=== PATIENT | male | born 1955 | race Caucasian/White ===

== ENCOUNTER 2016-10-28 12:17 | Outpatient (CLI) | payer BC ==
[~2016-10-28] VITALS: Ht 177.8 cm; Wt 106.6 kg
[~2016-10-28 12:17] MED LIST: ATOR1TAB21 PO
[2016-10-28] MEDS ORDERED: NS 1,000 ML IV ONE (13:00)
[2016-10-28] MEDS ORDERED: LIDOCAINE 2% INJ 100 MG/5 ML SDV (FOR ANES.) As Ordered ONE (13:39)
[2016-10-28] MEDS ORDERED: PROPOFOL 200 MG/20 ML VIAL As Ordered ONE (13:39)
--- NOTE | 2016-10-28 14:33 | ROOR ---
Patient Name: Khris Mtz Procedure Date: 10/28/2016 2:02 PM Date of : 1955 Age: 61 Room: [facility] Gender: Male Note Status: Finalized Procedure: Total Colonoscopy to Cecum + Biopsy Polypectomy Indications: Screening for colorectal malignant neoplasm, Last colonoscopy: 2006 Providers: Ty Enrique MD Referring MD: Katiana QUICK [facility] [place], [facility], Admin. Requesting Provider: Medicines: Monitored Anesthesia Care Complications: No immediate complications. Procedure: Pre-Anesthesia Assessment: - The heart rate, respiratory rate, oxygen saturations, blood pressure, adequacy of pulmonary ventilation, and response to care were monitored throughout the procedure. The Colonoscope was introduced through the anus and advanced to the cecum, identified by appendiceal orifice and ileocecal valve. The colonoscopy was performed without difficulty. The patient tolerated the procedure well. The quality of the bowel preparation was excellent. Findings: The perianal and digital rectal examinations were normal. Non-bleeding internal hemorrhoids were found during retroflexion. The hemorrhoids were small and Grade I (internal hemorrhoids that do not prolapse). Multiple small and large-mouthed diverticula were found in the recto-sigmoid colon, sigmoid colon and descending colon. A medium polyp was found in the hepatic flexure. The polyp was sessile. The polyp was removed with a jumbo cold forceps. Resection and retrieval were complete. A medium polyp was found in the mid ascending colon. The polyp was carpet-like. The polyp was removed with a jumbo cold forceps. Resection and retrieval were complete. The exam was otherwise without abnormality on direct and retroflexion views. Impression: - Non-bleeding internal hemorrhoids. - Diverticulosis in the recto-sigmoid colon, in the sigmoid colon and in the descending colon. - One medium polyp at the hepatic flexure, removed with a jumbo cold forceps. Resected and retrieved. - One medium polyp in the mid ascending colon, removed with a jumbo cold forceps. Resected and retrieved. - The examination was otherwise normal on direct and retroflexion views. - The exam was otherwise normal to the cecum. Recommendation: - Patient has a contact number available for emergencies. The signs and symptoms of potential delayed complications were discussed with the patient. Return to normal activities tomorrow. Written discharge instructions were provided to the patient. - High fiber diet. - Discharge patient to home. - Continue present medications. - Await pathology results. - Telephone GI clinic for pathology results in 1 week. - Repeat colonoscopy for surveillance based on pathology results. - Return to referring physician. - The findings and recommendations were discussed with the patient's family. Ty Enrique MD Ty Enrique MD 10/28/2016 2:32:51 PM This report has been signed electronically. Number of Addenda: 0 Note Initiated On: 10/28/2016 2:02 PM Estimated Blood Loss: Estimated blood loss: none.
[2016-10-28 14:55] VITALS: BP 120/80
== END 2016-10-28 15:15 | disposition home or self-care (01) ==
LOC: M OPP 12:17
PROVIDERS: ATTEND Internal Medicine Gastroenterology
DX: Z12.11 Encounter for screening for malignant neoplasm of colon (principal); D12.3 Benign neoplasm of transverse colon; D12.2 Benign neoplasm of ascending colon; K64.0 First degree hemorrhoids; K57.30 Diverticulosis of large intestine without perforation or abscess without bleeding; E78.5 Hyperlipidemia, unspecified; M19.90 Unspecified osteoarthritis, unspecified site; M54.9 Dorsalgia, unspecified; M25.60 Stiffness of unspecified joint, not elsewhere classified; Z79.899 Other long term (current) drug therapy

== ENCOUNTER → 2020-01-08 | Outpatient (CLI) | payer OTHER ==
--- NOTE | 2020-01-09 07:31 | REP ---
INDICATION: CKD W/ RENAL INSUFFANCY COMPARISON: None TECHNIQUE: Real time trinidad scale ultrasound examination using curved array transducer. FINDINGS: Bilateral kidneys are normal in contour, size, echogenicity, and reniform shape without hydronephrosis, nephrolithiasis, cystic or renal mass lesion. No perinephric fluid collection. Right kidney measures 10.7 x 5.1 x 4.8 cm. Left kidney measures 11.1 x 4.8 x 5.1 cm. Bladder is grossly unremarkable. IMPRESSION: 1. Normal renal ultrasound. <Electronically signed by Franklin Argueta > 01/09/20 0772
== END ==
LOC: M RAD 10:59
PROVIDERS: ATTEND Physician Assistant Medical
DX: N28.9 Disorder of kidney and ureter, unspecified (principal)

== ENCOUNTER → 2020-03-22 | Outpatient (CLI) | payer OTHER ==
[~2020-03-22] MED LIST changes: +DILT120T PO; +ELIQ5TAB PO
== END ==
LOC: M LABSMTC 10:47
PROVIDERS: ATTEND Anesthesiology
DX: Z01.812 Encounter for preprocedural laboratory examination (principal); Z20.822 Contact with and (suspected) exposure to COVID-19

== ENCOUNTER 2020-03-27 08:41 | Day surgery (SDC) | payer OTHER ==
[~2020-03-27] VITALS: Ht 177.8 cm; Wt 113.4 kg
[~2020-03-27 08:41] MED LIST changes: +NS 1,000 ML IV ONE
--- OUTSIDE RECORDS SUMMARY | 2020-03-27 08:46 | CCD ---
Author Author [facility] Organization [facility] Address Unknown Phone Unavailable Care Team Providers Care Import Dispatcher Name Role Phone Beryl Enrique MD Unavailable Unavailable Beryl Enrique MD Unavailable Unavailable Beryl Enrique MD Unavailable Unavailable Beryl Enrique MD Unavailable Unavailable Beryl Enrique MD Unavailable Unavailable Beryl Enrique MD Unavailable Unavailable Beryl Enrique MD Unavailable Unavailable Beryl Enrique MD Unavailable Unavailable Beryl Enrique MD Unavailable Unavailable Beryl Enrique MD Unavailable Unavailable Beryl Enrique MD Unavailable Unavailable Beryl Enrique MD Unavailable Unavailable Beryl Enrique MD Unavailable Unavailable Beryl Enrique MD Unavailable Unavailable Beryl Enrique MD Unavailable Unavailable Beryl Enrique MD Unavailable Unavailable Beryl Enrique MD Unavailable Unavailable Beryl Enrique MD Unavailable Unavailable Beryl Enrique MD Unavailable Unavailable Beryl Enrique MD Unavailable Unavailable Beryl Enrique MD Unavailable Unavailable Beryl Enrique MD Unavailable Unavailable Beryl Enrique MD Unavailable Unavailable Beryl Enrique MD Unavailable Unavailable Beryl Enrique MD Unavailable Unavailable Beryl Enrique MD Unavailable Unavailable Beryl Enrique MD Unavailable Unavailable Iva, S Ty MD Unavailable Unavailable Iva, S Ty MD Unavailable Unavailable Iva, S Ty MD Unavailable Unavailable Iva, S Ty MD Unavailable Unavailable Iva, S Ty MD Unavailable Unavailable Iva, S Ty MD Unavailable Unavailable Iva, S Ty MD Unavailable Unavailable Iva, S Ty MD Unavailable Unavailable Iva, S Ty MD Unavailable Unavailable Iva, S Ty MD Unavailable Unavailable Iva, S Ty MD Unavailable Unavailable Iva, S Ty MD Unavailable Unavailable Iva, S Ty MD Unavailable Unavailable Iva, S Ty MD Unavailable Unavailable Iva, S Ty MD Unavailable Unavailable Iva, S Ty MD Unavailable Unavailable Iva, S Ty MD Unavailable Unavailable Iva, S Ty MD Unavailable Unavailable Iva, S Ty MD Unavailable Unavailable Iva, S Ty MD Unavailable Unavailable Iva, S Ty MD Unavailable Unavailable Re-disclosure Warning The records that you are about to access may contain information from federally-assisted alcohol or drug abuse programs. If such information is present, then the following federally mandated warning applies: This information has been disclosed to you from records protected by federal confidentiality rules (42 CFR part 2). The federal rules prohibit you from making any further disclosure of this information unless further disclosure is expressly permitted by the written consent of the person to whom it pertains or as otherwise permitted by 42 CFR part 2. A general authorization for the release of medical or other information is NOT sufficient for this purpose. The Federal rules restrict any use of the information to criminally investigate or prosecute any alcohol or drug abuse patient.The records that you are about to access may contain highly sensitive health information, the redisclosure of which is protected by Article 27-F of the [facility] Public Health law. If you continue you may have access to information: Regarding HIV / AIDS; Provided by facilities licensed or operated by the [facility] Office of Mental Health; or Provided by the [facility] Office for People With Developmental Disabilities. If such information is present, then the following [facility] mandated warning applies: This information has been disclosed to you from confidential records which are protected by state law. State law prohibits you from making any further disclosure of this information without the specific written consent of the person to whom it pertains, or as otherwise permitted by law. Any unauthorized further disclosure in violation of state law may result in a fine or detention sentence or both. A general authorization for the release of medical or other information is NOT sufficient authorization for further disc losure. Family History Family Member Name Family Member Gender Family Member Status Date o f Status Description Data Source(s) Unknown Male Problem [facility] ([facility]) Unknown Male Problem [facility] ([facility]) () Encounters Encounter Providers Location Date Indications Data Source(s ) Outpatient Attender: Ty Enrique MD Main Office 03/14/2020 09:45:00 AM EST [facility] ([facility]) Medications Medication Brand Name Start Date Product Form Dose Route Admi nistrative Instructions Pharmacy Instructions Status Indications Reaction Description Data Source(s) Suprep Bowel Prep Kit Suprep Bowel Prep Kit 03/14/2020 12:00:00 AM EST active [facility] ([facility]) Insurance Providers Payer name Policy type / Coverage type Policy ID Covered republican ID Covered republican's relationship to ny Policy Ny Plan Information 'S ADMINISTRATION [id number] SP [id number] [facility]UM [facility] [id number] SP [id number] [facility] SHIELD -O/P [id number] 18 [id number] [place]/307 [id number] SP [id number] [place]/307 [id number] SP [id number] [place] Commercial [id number] Self [id number] Excell[employer] [facility] Commercial [id number] Self [id number] [facility]US [facility] BS [id number] 18 [id number] [facility] SHIELD -O/P [id number] 18 [id number] [employer] [place] [facility] Commercial [id number] Self [id number] [facility] BS [id number] 18 [id number] EXCELLUS BCBS B [id number] [place] [id number] [facility] SHIELD[facility]CL[facility] [id number] 18 [id number] [employer] PPO 302/307 [id number] SP [id number] [facility] [id number] SP [id number] Results ID Date Data Source [id number] 03/22/2020 10:00:00 AM EST [facility] Name Value Range Interpretation Code Description Data Sveta rce(s) Supporting Document(s) SARS coronavirus 2 RNA Not Detected [facility] [place] This lab was ordered by [facility] and reported by [facility]. Procedure Vital Signs ID Date Data Source UNK Name Value Range Interpretation Code Description Data Source(s) Body temperature 96.8 [degF] 96.8 [degF] [facility] ([facility]) Body weight 117.029 kg 117.029 kg [facility]) Body mass index (BMI) [Ratio] 37.0 kg/m2 37.0 k g/m2 [facility] ([facility]) Heart rate 59 /min 59 /min [facility] ([facility]) Diastolic blood pressure 82 mm[Hg] 82 mm[Hg] [facility] ([facility]) Systolic blood pressure 132 mm[Hg] 132 mm[Hg] M [facility] ([facility]) Body weight 258.00 [lb_av] 258.00 [lb_av] [facility] T ([facility]) Body height 70 [in_i] 70 [in_i] [facility] ([facility]) 5'10"
--- OUTSIDE RECORDS SUMMARY | 2020-03-27 08:46 | CCD ---
Continuity of Care Document (CCD) Created on: 03/14/2020 BibiMauroKhris External Reference #: [id number] : 1955 Sex: Male Author Author Khris ENRIQUE M.D Organization Unknown Address [address] [place] [address] Phone [phone] Care Team Providers Care Field Agronomist Name Role Phone Susie Serrato AUTM [phone] Armani Rose MD AUTM [phone] Problems Active Problems Provider Date Screening for malignant neoplasm of colon Ty muñoz M.D. Onset: 10/15/2016 Social History Type Date Description Comments Sex Unknown ETOH Use Occasionally Tobacco Use Start: Unknown Patient has never smoked Allergies, Adverse Reactions, Alerts Description No Known Drug Allergies Medications Active Medications SIG Qnty Indications Ordering Provide r Date Suprep Bowel Prep Kit 17.5-3.13-1.6GM/177ML Solution use as directed 354ml Ty Enrique M.D. 03/14/2020 Eliquis 5mg Tablets Unknown Diltiazem HCL 120mg Tablets Unknown Immunizations Description No Information Available Vital Signs Date Vital Result Comment 03/14/2020 10:39am Height 70 inches 5'10" Weight 258.00 lb BP Systolic 132 mmHg BP Diastolic 82 mmHg Heart Rate 59 /min BMI (Body Mass Index) 37.0 kg/m2 Weight 117.029 kg Body Temperature 96.8 F 10/15/2016 9:23am Height 70 inches 5'10" Weight 235.00 lb BP Systolic 123 mmHg BP Diastolic 80 mmHg Heart Rate 64 /min BMI (Body Mass Index) 33.7 kg/m2 Weight 106.596 kg Results Description No Information Available Procedures Description No Information Available Medical Devices Description No Information Available Encounters Description No Information Available Assessments Date Code Description Provider 03/14/2020 Z86.010 Personal history of colonic poly ps Ty Enrique M.D. Plan of Treatment Future Appointment(s):* 03/27/2020 10:30 am - Ty Enrique M.D. at Main Office 03/14/2020 - Ty Enrique M.D.* Z86.010 Personal history of colonic polyps* Comments:* 64 yo wm who presents for a Last scope was in 2017. No c/o abdominal pain, weight loss, change in bowel habits, or rectal bleeding. No family h/o colon cancer. No h/o chest pain, or sob. Plan:1.Schedule patient for Colonoscopy. 2. Informed consent given.3. Advised to stop asa, plavix,and anticoagulation 3 to 7 days prior to the procedures. Functional Status Description No Information Available Mental Status Description No Information Available Referrals Refer to Reason for Referral Status Appt Date Ty Enrique M.D. Scheduled [address] [place] [address] [phone]
--- OUTSIDE RECORDS SUMMARY | 2020-03-27 08:46 | CCD | Continuity of Care Document ---
Author Author Khris ENRIQUE M.D Organization Unknown Address [address] [place] [id number] Phone [phone] Care Team Providers Care Java Jsf Developer Name Role Phone Susie Serarto AUTM [phone] Armani Rose MD AUTM [phone] Problems Active Problems Provider Date Screening for [...] Medical Devices Description No Information Available Encounters Type Date Location Provider Dx Diagnosis Office Visit 03/14/2020 10:45a Main Office Ty Enrique M.D. Z 86.010 Personal history of colonic polyps Assessments Date Code Description Provider 03/14/2020 Z86.010 Personal history of colonic poly ps Ty Enrique M.D. Plan of Treatment Future Appointment(s):* 03/20/2020 7:00 am - [facility] at Main Office * 03/27/2020 10:30 am - Ty Enrique M.D. [...] Appt Date Ty Enrique M.D. Scheduled [address] [place] [phone]
[2020-03-27] MEDS ORDERED: METOPROLOL 5 MG/5 ML VIAL As Ordered ONE (10:40)
[2020-03-27] MEDS ORDERED: APIXABAN 5 MG TAB (ELIQUIS) PO STA (10:50)
[2020-03-27] MEDS ORDERED: METOPROLOL 5 MG/5 ML VIAL IV STA (10:51)
[2020-03-27] MEDS: METOPROLOL 5 MG/5 ML VIAL IV PRN ×2 (11:03→11:19)
[2020-03-27 12:05] VITALS: BP 122/71
--- NOTE | 2020-03-28 15:13 | ECGEPIP ---
[facility] Test Date: 2020-03-27 Pat Name: UMM AGUSTIN Department: Room: - Gender: Male Internist Medical Doctor Md: : 1955 Requested By: Vasu Hand Order Number: [id number] Reading MD: Thomas Vidales Measurements Intervals [place] Rate: 120 P: GA: QRS: -55 QRSD: 90 T: 18 QT: 334 QTc: 472 Interpretive Statements Underlying atrial fibrillation with rapid ventricular response. Extreme left axis deviation-left anterior hemiblock. Rule out prior IWMI Nonspecific ST/T wave abnormalities. No prior tracing for comparison. Clincal correlation advised Electronically Signed on 03-28-2020 15:13:24 EST by Thomas Vidales
== END 2020-03-27 12:18 | disposition home or self-care (01) ==
LOC: M OPP 08:41
PROVIDERS: ATTEND Internal Medicine Gastroenterology
DX: Z86.010 Personal history of colon polyps (principal); I48.91 Unspecified atrial fibrillation

== ENCOUNTER 2023-03-04 06:05 | Emergency (ER) | payer OTHER ==
[~2023-03-04] VITALS: Ht 177.8 cm; Wt 120.3 kg
[2023-03-04 06:05] VITALS: BP 133/58; TEMP 99.6; O2SAT 100
[~2023-03-04 06:05] MED LIST changes: -NS 1,000 ML IV ONE
== END 2023-03-04 07:30 | disposition left against medical advice (07) ==
LOC: M ED 06:05
DX: Z53.21 Procedure and treatment not carried out due to patient leaving prior to being seen by health care provider (principal)